=== PATIENT | female | born 1985 | race Caucasian/White ===

== ENCOUNTER 2017-10-04 10:44 | Emergency (ER) | payer OTHER ==
[~2017-10-04] VITALS: Ht 157.5 cm; Wt 51.0 kg
[~2017-10-04 10:44] MED LIST: CLINDAMYCIN2 % VA; FERROUS SULF325 M1 PO; INTEGRA F PO; PRENATAL 1 OR; TUBERSOL5 MG/0.1 M ID
[2017-10-04] MEDS ORDERED: BIAXIN500 MG PO (12:00)
[2017-10-04] MEDS ORDERED: VOLTAREN - GENE75 MG PO (12:00)
[2017-10-04 12:08] VITALS: BP 127/92
== END 2017-10-04 12:16 | disposition home or self-care (01) | DRG 203 ==
LOC: ED 10:44
DX: J20.9 Acute bronchitis, unspecified (principal); F17.210 Nicotine dependence, cigarettes, uncomplicated; R09.1 Pleurisy

== ENCOUNTER 2017-10-21 10:42 | Emergency (ER) | payer OTHER ==
[~2017-10-21] VITALS: Ht 157.5 cm; Wt 65.0 kg
[~2017-10-21 10:42] MED LIST changes: +BIAXIN500 MG PO; +VOLTAREN - GENE75 MG PO
[2017-10-21 12:45] VITALS: BP 121/66
== END 2017-10-21 12:45 | disposition home or self-care (01) | DRG 204 ==
LOC: ED 10:42
DX: R07.81 Pleurodynia (principal); F17.200 Nicotine dependence, unspecified, uncomplicated; R05 Cough

== ENCOUNTER 2017-10-25 11:41 | Emergency (ER) | payer OTHER ==
[~2017-10-25] VITALS: Ht 157.5 cm; Wt 55.0 kg
[2017-10-25 13:01] LABS: URINE BILIRUBIN - DIPSTICK NEGATIVE (NEGATIVE); URINE BLOOD DIPSTICK LARGE (NEGATIVE); URINE COLOR YELLOW; URINE GLUCOSE - DIPSTICK NEGATIVE (NEGATIVE); URINE KETONE NEGATIVE (NEGATIVE); URINE LEUK ESTERASE NEGATIVE (NEGATIVE); URINE NITRITE - DIPSTICK NEGATIVE (Negative); URINE PH 6.5 (4.5-8.0); URINE PROTEIN - DIPSTICK NEGATIVE (NEG-TRACE); URINE UROBILINOGEN - DIPSTICK 0.2 E.U./dL (0.2)
[2017-10-25 13:02] LABS: HEMOGLOBIN 11.2 g/dl (12.0-16.0); IMMATURE GRANULOCYTES 0.2 % (0.0-1.0); MEAN CELL VOLUME 88.2 fL CALC (80.0-100.0); MEAN CORPUSCULAR HGB 28.2 pG CALC (26.0-32.0); NEUT# 4.67 thou/uL (2.00-7.15); RED BLOOD COUNT 3.97 mill/uL (4.20-5.60); RED CELL DISTRI WIDTH 13.2 % (11.5-15.5)
[2017-10-25 13:08] LABS: URINE CLARITY CLOUDY
[2017-10-25 13:09] LABS: ANION GAP 15 (6-22 (CALC)); BILIRUBIN, TOTAL 0.3 mg/dL (0.0-1.4); BUN 9 mg/dL (7-17); BUN/CREATININE RATIO 13 (12-20 (CALC)); CARBON DIOXIDE 26 mmol/l (22-30); CHLORIDE 106 mmol/l (95-108); CREATININE 0.7 mg/dL (0.5-1.0); GFR > 60 ML/MIN (>=60 (CALC)); GFR FOR AFR.AMER. > 60 ML/MIN (>=60 (CALC)); POTASSIUM 3.5 mmol/l (3.5-5.1); SGOT/AST 19 u/l (14-36); SGPT/ALT 29 u/l (9-52); SODIUM 143 mmol/l (137-146)
[2017-10-25 13:16] LABS: ALBUMIN 3.9 g/dL (3.2-5.0); ALKALINE PHOSPHATASE 58 u/l (38-126); TOTAL PROTEIN 6.8 g/dL (6.3-8.2)
[2017-10-25 13:20] LABS: URINE RBC TNTC RBC/hpf (0-5); URINE SQUAMOUS EPITHELIAL CELL FEW EPI/hpf (0-FEW)
[2017-10-25] MEDS ORDERED: TORADOL PO (14:45)
[2017-10-25 15:03] VITALS: BP 110/75
== END 2017-10-25 15:03 | disposition home or self-care (01) | DRG 761 ==
LOC: ED 11:41
PROVIDERS: Emergency Medicine
DX: D25.9 Leiomyoma of uterus, unspecified (principal); R10.32 Left lower quadrant pain; F17.210 Nicotine dependence, cigarettes, uncomplicated

== ENCOUNTER 2017-11-06 14:02 | Emergency (ER) | payer OTHER ==
[~2017-11-06] VITALS: Ht 157.5 cm; Wt 50.0 kg
[~2017-11-06 14:02] MED LIST changes: +TORADOL PO
[2017-11-06] MEDS ORDERED: PROAIR HFA108 MCG/AC PO (15:29)
[2017-11-06 15:50] VITALS: BP 107/70
== END 2017-11-06 15:50 | disposition home or self-care (01) | DRG 203 ==
LOC: ED 14:02
DX: J20.8 Acute bronchitis due to other specified organisms (principal); F17.210 Nicotine dependence, cigarettes, uncomplicated; R06.02 Shortness of breath

== ENCOUNTER 2018-12-28 18:04 | Emergency (ER) | payer SELFPAY ==
[~2018-12-28] VITALS: Ht 157.5 cm; Wt 51.7 kg
[~2018-12-28 18:04] MED LIST changes: +PROAIR HFA108 MCG/AC PO
[2018-12-28] MEDS ORDERED: TORADOL PO (18:22)
[2018-12-28] MEDS ORDERED: AMOXICILLIN500 MG PO (18:22)
[2018-12-28 18:30] VITALS: BP 132/89
== END 2018-12-28 18:30 | disposition home or self-care (01) | DRG 159 ==
LOC: ED 18:04
PROC: 0C953ZZ Drainage of Upper Gingiva, Percutaneous Approach (ICD-10-PCS; principal; 2018-12-28)
DX: K04.7 Periapical abscess without sinus (principal); F17.200 Nicotine dependence, unspecified, uncomplicated

== ENCOUNTER 2022-05-01 17:26 | Emergency (ER) | payer MEDICAID ==
[~2022-05-01] VITALS: Ht 157.5 cm; Wt 68.0 kg
[~2022-05-01 17:26] MED LIST changes: +AMOXICILLIN500 MG PO
[2022-05-01 17:55] VITALS: BP 141/103
[2022-05-01] MEDS ORDERED: ESTROVERA4 MG (18:00)
[2022-05-01 18:04] VITALS: BP 113/76
[2022-05-01 18:17] VITALS: BP 145/78
[2022-05-01 18:24] LABS: URINE BILIRUBIN - DIPSTICK NEGATIVE (NEGATIVE); URINE BLOOD DIPSTICK TRACE-INTACT (NEGATIVE); URINE COLOR YELLOW; URINE GLUCOSE - DIPSTICK NEGATIVE (NEGATIVE); URINE KETONE NEGATIVE (NEGATIVE); URINE LEUK ESTERASE NEGATIVE (NEGATIVE); URINE PROTEIN - DIPSTICK NEGATIVE (NEG-TRACE); URINE SPECIFIC GRAVITY >=1.030; URINE UROBILINOGEN - DIPSTICK 0.2 E.U./dL (0.2)
[2022-05-01 18:27] LABS: URINE NITRITE - DIPSTICK NEGATIVE (Negative)
[2022-05-01 18:30] VITALS: BP 114/75
[2022-05-01 18:32] LABS: IMMATURE GRANULOCYTES 0.1 % (0.0-5.0); MEAN CELL VOLUME 92.4 fL CALC (80.0-100.0); MEAN CORPUSCULAR HGB 31.4 pG CALC (26.0-32.0); NEUT# 5.57 thou/uL (2.00-7.15); RED BLOOD COUNT 4.71 mill/uL (4.20-5.60); RED CELL DISTRI WIDTH 11.7 % (11.5-15.5)
[2022-05-01 18:33] LABS: HEMATOCRIT 43.5 % (37.0-47.0); HEMOGLOBIN 14.8 g/dl (12.0-16.0)
[2022-05-01 18:44] LABS: ALBUMIN 4.4 g/dL (3.2-5.0); ALKALINE PHOSPHATASE 67 u/l (38-126); ANION GAP 11 (6-22 (CALC)); BILIRUBIN, TOTAL 0.4 mg/dL (0.0-1.4); BUN 10 mg/dL (7-17); BUN/CREATININE RATIO 14 (12-20 (CALC)); CARBON DIOXIDE 27 mmol/l (22-30); CHLORIDE 106 mmol/l (95-108); CREATININE 0.7 mg/dL (0.5-1.0); GFR FOR AFR.AMER. > 60 ML/MIN (>=60 (CALC)); GFR OTHER RACES > 60 ML/MIN (>=60 (CALC)); LIPASE 204 u/l (23-300); POTASSIUM 3.6 mmol/l (3.5-5.1); SGOT/AST 22 u/l (14-36); SODIUM 140 mmol/l (137-146); TOTAL PROTEIN 7.2 g/dL (6.3-8.2)
[2022-05-01 18:45] VITALS: BP 120/76
[2022-05-01 20:59] VITALS: BP 120/76
== END 2022-05-01 21:05 | disposition home or self-care (01) ==
LOC: ED 17:26
PROVIDERS: Family Medicine
DX: R19.04 Left lower quadrant abdominal swelling, mass and lump (principal); F17.200 Nicotine dependence, unspecified, uncomplicated
CPT/HCPCS: Q9966

== ENCOUNTER 2022-09-06 11:35 | Emergency (ER) | payer MEDICAID ==
[~2022-09-06] VITALS: Ht 157.5 cm; Wt 54.4 kg
[~2022-09-06 11:35] MED LIST changes: +ESTROVERA4 MG
[2022-09-06] MEDS ORDERED: TRAMADOL HYDROC50 M1 PO (14:42)
[2022-09-06 14:48] VITALS: BP 121/81
== END 2022-09-06 14:55 | disposition home or self-care (01) ==
LOC: ED 11:35
DX: G89.29 Other chronic pain (principal); R10.9 Unspecified abdominal pain; R19.09 Other intra-abdominal and pelvic swelling, mass and lump; Z85.41 Personal history of malignant neoplasm of cervix uteri

== ENCOUNTER 2023-02-19 08:33 | Emergency (ER) | payer MEDICAID ==
[~2023-02-19] VITALS: Ht 157.5 cm; Wt 44.5 kg
[2023-02-19] VITALS (18 sets, daily range): BP systolic 133–151; BP diastolic 85–105
[~2023-02-19 08:33] MED LIST changes: +TRAMADOL HYDROC50 M1 PO
[2023-02-19] MEDS ORDERED: FLEXERIL5 M1 PO (09:34)
[2023-02-19] MEDS ORDERED: MOTRIN800 MG PO (09:34)
[2023-02-19 09:51] LABS: BASO% 0.1 % (0-3); EOS% 0.1 % (0-8); HEMATOCRIT 41.4 % (37.0-47.0); HEMOGLOBIN 14.4 g/dl (12.0-16.0); IMMATURE GRANULOCYTES 0.3 % (0.0-5.0); LYMPH% 6.6 % (15-41); MEAN CELL VOLUME 91.2 fL CALC (80.0-100.0); MEAN CORPUSCULAR HGB 31.7 pG CALC (26.0-32.0); MEAN CORPUSCULAR HGB CONC 34.8 g/dL CAL (32.0-36.0); MONO% 7.4 % (2-13); NEUT# 11.4 thou/uL (2.00-7.15); NEUT% 85.5 % (42-76); RED BLOOD COUNT 4.54 mill/uL (4.20-5.60); RED CELL DISTRI WIDTH 11.6 % (11.5-15.5)
[2023-02-19 10:02] LABS: ALBUMIN 4.6 g/dL (3.2-5.0); BUN 18 mg/dL (7-17); BUN/CREATININE RATIO 27 (12-20 (CALC)); CARBON DIOXIDE 24 mmol/l (22-30); CREATININE 0.7 mg/dL (0.5-1.0); GFR FOR AFR.AMER. > 60 ML/MIN (>=60 (CALC)); GFR OTHER RACES > 60 ML/MIN (>=60 (CALC)); SGOT/AST 33 u/l (14-36); TOTAL PROTEIN 7.7 g/dL (6.3-8.2)
[2023-02-19 10:04] LABS: ALKALINE PHOSPHATASE 110 u/l (38-126); ANION GAP 18 (6-22 (CALC)); BILIRUBIN, TOTAL 1.1 mg/dL (0.02-1.3); CHLORIDE 92 mmol/l (95-108); SODIUM 131 mmol/l (137-146)
[2023-02-19 10:09] LABS: ACT PARTIAL THROMBO TIME 28.7 SECONDS (20.0-32.5); INTERNATIONAL NORMALIZED RATIO 1.1 RATIO (0.7-1.3); PROTHROMBIN TIME 10.8 SECONDS (9.0-12.5)
== END 2023-02-19 14:00 | disposition short-term general hospital (02) ==
LOC: ED 08:33
PROVIDERS: Emergency Medicine
DX: K56.609 Unspecified intestinal obstruction, unspecified as to partial versus complete obstruction (principal); R19.09 Other intra-abdominal and pelvic swelling, mass and lump
CPT/HCPCS: Q9967